=== PATIENT | female | born 1955 | race Caucasian/White ===

== ENCOUNTER 2020-03-11 06:25 | Day surgery (SDC) | payer OTHER ==
[~2020-03-11] VITALS: Ht 165.1 cm; Wt 83.0 kg
[2020-03-11] MEDS ORDERED: FUROSEMIDE20 MG PO (06:48)
[2020-03-11] MEDS ORDERED: POTASSIUM CHLO20 ME2 PO (06:48)
[2020-03-11] MEDS ORDERED: PEPCID20 MG PO (06:49)
--- NOTE | 2020-03-11 07:43 | NUR ---
PT IS ALERT, ORIENTED AND SEEMS TO HAVE DEALT WITH PREP APPROPRIATELY. PT STATED IT HAS BEEN QUITE A FEW YEARS SINCE HER LAST SCOPE. ALL QUESTIONS ASKED ANSWERED.PT'S WILL ARRIVE FOR PT FOLLOWING DC. PT REGUESTED PRAYER, WILL FOLLOW
--- NOTE | 2020-03-11 07:58 | NUR ---
03/11/20 0758 Ceci Franco 0753- PT TO PACU IN LL POSITION. EYES CLOSED. RESPONDS TO VERBAL AND TACTILE STIMULI. DENIES PAIN OR NAUSEA. BREATHING EASY AND UNLABORED. SPO2 >95% ON 3 L O2 VIA NC. PT ENCOURAGED TO PASS GAS.
--- NOTE | 2020-03-12 08:35 | OR ---
[facility] [address], [place] [address] Signed DATE OF OPERATION: 03/11/2020 SURGEON: Konstantin Corbett MD PREOPERATIVE DIAGNOSIS: Colon surveillance. POSTOPERATIVE DIAGNOSIS: Normal colon and ileum; mild proctitis. PROCEDURE: Total colonoscopy to cecum with intubation of ileum and biopsy of rectum. ANESTHESIA: Intravenous sedation, fentanyl 100 mcg and Versed 3 mg. INDICATION: This 64-year-old white woman is a patient of AUGUSTA Griffin. She underwent colonoscopy greater than 10 years ago elsewhere and was said to be normal. She has no symptoms of bleeding, diarrhea or constipation and denies any family history of colon cancer. If she was anticipated to see me in the office prior to colonoscopy this past (today is Wednesday), but I was unavoidably detained. On that basis, phone interview was undertaken with her by me and physical exam performed this morning. She is a good candidate for surveillance colonoscopy. The risks of bleeding, infection, and perforation were reviewed with her regarding colonoscopy. She understands and wished to proceed. She has undergone a MiraLAX based bowel prep. FINDINGS: The prep was excellent. Complete colonoscopy was undertaken to the cecum without question. Intubation of the ileum was accomplished as well. She had mild proctitis on retroflexed view, but no sign of polyps or obvious diverticular changes. She did have deep sulci of the sigmoid, but no diverticular orifices were identified otherwise. DESCRIPTION OF PROCEDURE: The patient was brought to the endoscopy suite and placed in lateral decubitus position after complete physical examination performed. She was given intravenous sedation to the point of slurred speech and nystagmus with full cardiopulmonary monitoring. Digital rectal examination was normal. An Olympus video colonoscope was passed in the rectum and manipulated throughout the Electronically Signed By: KONSTANTIN CORBETT MD 03/12/20 0835 PATIENT NAME: RENETTA RAMIREZ OPERATIVE REPORT DATE OF : 59 REPORT #: [id number] PHYSICIAN: KONSTANTIN CORBETT MD PCP: SOL NIELSEN PA-C REPORT IS CONFIDENTIAL AND NOT TO BE RELEASED WITHOUT AUTHORIZATION [facility] [address], [place] [address] Signed colon ultimately intubating the cecum. The ileocecal valve and appendiceal orifice were normal. With various manipulations, the ileum was entered and passed several cm. The ileum appeared normal. The scope was withdrawn to the cecum. Appendiceal orifice was easily identified. The scope was withdrawn from that point and examination throughout undertaken carefully searching for polyps or other abnormalities. There were none, although there were deep sulci of the sigmoid distinct diverticula identified. Retroflexed view of the rectum showed mild proctitis. Though, probably not significant pathologically biopsy was obtained. The scope was straightened withdrawn and removed. The patient was taken to the recovery room in good condition. CONCLUDING DIAGNOSIS: Normal colon and ileum with mild proctitis probably insignificant. PLAN: We would recommend a repeat colonoscopy in 10 years sooner if clinically indicated. We will review her pathology report and if there are significant findings, advise accordingly. She will return to the ongoing care of Sol Nielsen. MD ALEX Ramirez/MODL /[id number] cc: Sol Nielsen PA-C Copies: SOL NIELSEN PA-C ~ Electronically Signed By: KONSTANTIN CORBETT MD 03/12/20 0835 PATIENT NAME: RENETTA RAMIREZ OPERATIVE REPORT DATE OF : 59 REPORT #: [id number] PHYSICIAN: KONSTANTIN CORBETT MD PCP: SOL NIELSEN PA-C REPORT IS CONFIDENTIAL AND NOT TO BE RELEASED WITHOUT AUTHORIZATION
--- NOTE | 2020-03-12 12:03 | PATH ---
[facility] [address], [place] [address] Signed SPECIMEN(S): A RECTUM SPECIMEN SOURCE: A. RECTUM CLINICAL HISTORY: Surveillance colonoscopy (last colonoscopy 10 years ago). Postop: Mild proctitis. MICROSCOPIC DESCRIPTION: Histologic sections of all submitted blocks are examined by light microscopy. These findings, together with the gross examination, support the pathologic diagnosis. FINAL PATHOLOGIC DIAGNOSIS: Rectum, biopsy: - Rectal mucosa with no histopathologic abnormality. - Negative for dysplasia or malignancy. COMMENT: A benign mucosal lymphoid aggregate is present, which could be recognized as a polypoid lesion during colonoscopy. NAL:cml:C2NR GROSS DESCRIPTION: The specimen, labeled "CE, 1," and designated on the requisition "rectum," is received in formalin and consists of two spring soft tissue fragments that measure 0.3 cm in greatest dimension. The specimen is entirely submitted in cassette (A1). AT (under the direct supervision of a pathologist) The Gross Description was prepared using a voice recognition system. The report was reviewed for accuracy; however, sound-alike word errors, addition and/or deletions may occur. If there is any question about this report, please contact Client Services. PERFORMING LABORATORY: The technical component was performed by [facility], [address] [place] [id number] (Heater Helper: Waleska Young MD; CLIA# [id number]). [facility] [address] [address] (CLIA# [id number]). PATIENT NAME: RENETTA RAMIREZ PATHOLOGY DATE OF : 59 REPORT #: [id number] PHYSICIAN: [facility] PCP: MAGALY COOPER PA-C REPORT IS CONFIDENTIAL AND NOT TO BE RELEASED WITHOUT AUTHORIZATION [facility] [address] [place] [address] [address] [place] [address] Signed Diagnostician: Cori Trejo MD Pathologist Electronically Signed 03/12/2020 Copies: ~ PATIENT NAME: RENETTA RAMIREZ PATHOLOGY DATE OF : 59 REPORT #: [id number] PHYSICIAN: [facility] PCP: MAGALY COOPER PA-C REPORT IS CONFIDENTIAL AND NOT TO BE RELEASED WITHOUT AUTHORIZATION
== END 2020-03-11 08:50 | disposition home or self-care (01) ==
LOC: OPS 06:25 → DS 06:25 → OPS 06:45 → DS 06:45 → OPS 08:50
PROVIDERS: ATTEND Surgery
PROC: 0DBP8ZX Excision of Rectum, Via Natural or Artificial Opening Endoscopic, Diagnostic (ICD-10-PCS; principal; 2020-03-11 06:45)
DX: Z12.11 Encounter for screening for malignant neoplasm of colon (principal); K63.89 Other specified diseases of intestine; K62.89 Other specified diseases of anus and rectum; I10 Essential (primary) hypertension; E78.5 Hyperlipidemia, unspecified; K21.00 Gastro-esophageal reflux disease with esophagitis, without bleeding; E66.3 Overweight; Z79.899 Other long term (current) drug therapy; Z68.30 Body mass index [BMI] 30.0-30.9, adult
CPT/HCPCS: 99153; G0500; J2250; J3010; J7121